=== PATIENT | male | born 1975 | race Asian ===

== ENCOUNTER 2024-08-02 08:35 | Day surgery (SDC) | payer MEDICAID, OTHER ==
[~2024-08-02] VITALS: Ht 188 cm; Wt 70.3 kg
[2024-08-02 09:38] VITALS: O2SAT 100
[2024-08-02] MEDS ORDERED: MIDAZOLAM HCL 5 MG/5 ML VIAL ONE ×2 (10:27→10:51)
[2024-08-02] MEDS ORDERED: fentaNYL CITRATE/PF 100 MCG/2 ML AMP ONE (10:27)
[2024-08-02 14:09] VITALS: BP_SYST 119; PULSE 72; RESP 15
== END 2024-08-02 11:35 | disposition home or self-care (01) ==
LOC: SDS 08:35 → SMU 08:36 → SDS 11:35
PROVIDERS: ATTEND Internal Medicine
DX: Z12.11 Encounter for screening for malignant neoplasm of colon (principal); K64.8 Other hemorrhoids; K21.9 Gastro-esophageal reflux disease without esophagitis; F17.210 Nicotine dependence, cigarettes, uncomplicated
CPT/HCPCS: 45378; 99152; G0378; J2250; J3010